=== PATIENT | male | born 1960 | race Two or more races ===

== ENCOUNTER → 2019-05-11 | Outpatient (CLI) | payer MEDICARE | LOC: MSC 09:20 | PROVIDERS: ATTEND Anesthesiology | DX: M54.16 Radiculopathy, lumbar region (principal); M96.1 Postlaminectomy syndrome, not elsewhere classified; M62.830 Muscle spasm of back; G89.4 Chronic pain syndrome; M25.562 Pain in left knee; M25.561 Pain in right knee; F11.20 Opioid dependence, uncomplicated ==

== ENCOUNTER 2020-06-29 21:40 | Emergency (ER) | payer MEDICARE, OTHER ==
[~2020-06-29] VITALS: Ht 182.9 cm; Wt 104.3 kg
--- NOTE | 2020-06-29 23:25 | NUR ---
PT BIBS STATES "IM HEARING VOICES TELLING ME TO KILL MYSELF" STATES PLAN IS TO CUT HIMSELF, PT STATES HE HAS NOT SHARP OBJECTS ON HIS PERSON, BELONGINGS CHECKED, NO SHARP OBJECTS FOUND. SECURITY AD BEDSIDE WITH PONCE TO CHECK FOR METAL ON PT. 1:1 SITTER FOR MONITORING
[2020-06-29 23:55] LABS: BASOPHILS % (AUTO) 0.6 % (0.0-2.0); EOSINOPHILS % (AUTO) 4.9 % (0.0-6.0); HEMATOCRIT 36 % (39-51); HEMOGLOBIN 12.2 g/dL (13.5-17.5); LYMPHOCYTES # (AUTO) 2.2 /CMM (0.8-4.8); LYMPHOCYTES % (AUTO) 34.7 % (20.0-44.0); MEAN CORPUSCULAR HGB CONC 34 g/dl (31.0-36.0); MEAN CORPUSCULAR VOLUME 95 fL (80-96); MONOCYTES # (AUTO) 0.8 /CMM (0.1-1.30); MONOCYTES % (AUTO) 12.5 % (2.0-12.0); NEUTROPHILS % (AUTO) 47.3 % (43.0-81.0); PLATELET COUNT (AUTO) 303 /CMM (150-450); WHITE BLOOD COUNT (AUTO) 6.4 K/uL (4.3-11.0)
--- NOTE | 2020-06-30 00:03 | NUR ---
urine sent to lab
[2020-06-30 00:30] LABS: CARBON DIOXIDE 26 mmol/L (21-32); CHLORIDE 106 mmol/L (98-107); CREATININE 1.3 mg/dL (0.6-1.3); GLUCOSE 151 mg/dL (74-106); POTASSIUM 3.5 mmol/L (3.5-5.1); SODIUM SERUM 142 mmol/L (136-145); UREA NITROGEN, BLOOD 21 mg/dL (7-18)
[2020-06-30 00:37] LABS: BILIRUBIN,URINE SMALL (NEGATIVE); BLOOD, URINE Negative Ery/uL (NEGATIVE); COLOR,URINE ORANGE (YELLOW); LEUKOCYTE ESTERASE ,URINE Negative (NEGATIVE); NITRITE, URINE Negative (NEGATIVE); PROTEIN,URINE Negative (NEGATIVE); UGLUCOSE Negative (NEGATIVE)
[2020-06-30 00:38] LABS: ACETAMINOPHEN < 10 ug/ml (10-30); ALANINE AMINOTRANSFERASE 36 U/L (12-78); ALBUMIN 3.4 g/dL (3.4-5.0); ALCOHOL, BLOOD < 3 mg/dL (0-0); ALKALINE PHOSPHATASE 100 U/L (46-116); ASPARTATE AMINOTRANSFERASE 31 U/L (15-37); BILIRUBIN,TOTAL 0.1 mg/dL (0.2-1.0); TOTAL PROTEIN, SERUM 7.2 g/dL (6.4-8.2)
[2020-06-30] MEDS ORDERED: DIVALPROEX SODIUM 500 MG TABLET.DR PO ONE ×2 (01:11→01:30)
[2020-06-30] MEDS ORDERED: buPROPion SR 100 MG TABLET.ER PO SCH (01:30)
[2020-06-30] MEDS ORDERED: ARIPIPRAZOLE 5 MG TABLET PO ONE (01:30)
--- NOTE | 2020-06-30 01:44 | NUR ---
CLINICAL FAXED TO [facility] FOR VOLUNTARY PSYCH ADMISSION.
[2020-06-30 01:49] LABS: BACTERIA,URINE None seen /HPF (None Seen); RBC,URINE 0-2 /HPF (0-2); WBC,URINE 0-2 /HPF (0-3)
[2020-06-30 01:50] LABS: SQUAMOUS EPITHELIAL CELL,UR Few /HPF (None Seen)
--- NOTE | 2020-06-30 01:56 | NUR ---
Call from lab, rapid covid negative.
--- NOTE | 2020-06-30 02:04 | NUR ---
Call from [facility]. Per [facility] unable to accept patient.
--- NOTE | 2020-06-30 03:06 | NUR ---
at time of discharge pt states he no longer has suicidal idiations or a plan, he understand there is no bed and would rather leave
[2020-06-30 03:07] VITALS: BP 133/76
--- NOTE | 2020-06-30 03:07 | NUR ---
Patient discharged to home in stable condition. Written and verbal after care instructions given. Patient verbalizes understanding of instruction.
== END 2020-06-30 03:07 | disposition home or self-care (01) ==
LOC: ER 21:40
DX: R45.851 Suicidal ideations (principal); F19.10 Other psychoactive substance abuse, uncomplicated; F14.10 Cocaine abuse, uncomplicated; F12.10 Cannabis abuse, uncomplicated; F20.9 Schizophrenia, unspecified; F31.9 Bipolar disorder, unspecified; E11.9 Type 2 diabetes mellitus without complications; I10 Essential (primary) hypertension; Z88.6 Allergy status to analgesic agent; Z20.828 Contact with and (suspected) exposure to other viral communicable diseases
CPT/HCPCS: 36415; 80048-TC; 80076-TC; 81001; 85025-TC; C9803; G0480

== ENCOUNTER 2022-05-06 20:11 | Inpatient (IN) | payer MEDICARE, OTHER ==
[~2022-05-06] VITALS: Ht 182.9 cm; Wt 104.3 kg
[2022-05-06 22:00] VITALS: BP 151/94
--- NOTE | 2022-05-06 22:00 | NUR ---
PINKED EDGE SEWING MACHINE OPERATOR NOTE: ADMITTED A 62-Y/O, MALE, FROM [facility]. ADMITTED ON A 5250 HOLD. PER HOLD, PT STATED, "I HAVE VOICES THAT ARE TELLING ME TO KILL MYSELF WITH NO CLEAR PLAN. UPON FACE TO FACE EVALUATION, PATIENT IS ALERT AND ORIENTED X3, ANXIOUS, NEEDY, GUARDED, FOCUS ON FOOD. PATIENT DENIES SI/HI AT THIS TIME. PATIENT STATES, HE STILL HEARING VOICES TELLING HIM ABOUT "KYRIE SANJAY AND DEVIL". PT. DENIED VISUAL HALLUCINATIONS. SKIN INTACT. ALL BELONGINGS WERE CHECKED FOR CONTRABAND AND WAS KEPT IN PT. ROOM LOCKER. HIS VALUABLES WERE TAKEN TO [facility]. PT IS A SMOKER AND NICOTINE PATCH WAS OFFERED BUT PATIENT REFUSED. PATIENT'S RIGHTS WERE DISCUSSED AND BOOKLET WAS GIVEN. CONTACTED DR. RICE AND HOSPITALIST SACHA LAWSON AND INFORMED THEM OF THE ADMISSION. BED IN LOW AND LOCKED POSITION. SAFETY PRECAUTIONS MAINTAINED. WILL CONTINUE TO MONITOR Q15 MINS FOR MOOD, SAFETY AND BEHAVIOR. Addendum: 05/07/22 at 0637 by ISSA CONTRERAS RN [id number] - ADMINISTERED FLU VACCINE ORDERED PER PT. REQUEST TO LEFT ARM. PT DENIES PAIN OR DISCOMFORT. NO SWELLING, NO REDNESS NOTED AT SITE.
[2022-05-06] MEDS ORDERED: ZOLPIDEM TARTRATE 5 MG TABLET PO PRN (22:30)
[2022-05-06] MEDS ORDERED: DEXTROSE 50%-WATER 50 ML DISP.SYRIN IV PRN (22:30)
[2022-05-06] MEDS ORDERED: MAG HYDROX/AL HYDROX/SIMETH 30 ML UDC PO PRN (22:30)
[2022-05-06] MEDS ORDERED: *INSULIN REGULAR(HUMULIN R)HUM 100 UNIT/ML VIAL SQ PRN (22:30)
[2022-05-06] MEDS ORDERED: BLOOD SUGAR DIAGNOSTIC 1 EACH STRIP IN ONE (22:30)
[2022-05-06] MEDS ORDERED: MAGNESIUM HYDROXIDE 30 ML UDC PO PRN (22:30)
[2022-05-07] MEDS ORDERED: DIVA500T2 PO (00:55)
[2022-05-07] MEDS ORDERED: TRIH5TAB3 PO (00:55)
[2022-05-07] MEDS ORDERED: IBUP-1953 PO (00:55)
[2022-05-07] MEDS ORDERED: METF-440 PO (00:55)
[2022-05-07] MEDS ORDERED: DICLOFENAC (00:55)
[2022-05-07] MEDS ORDERED: ARIP10TA9 PO (00:55)
[2022-05-07] MEDS ORDERED: CAPS42.513 TP (00:55)
[2022-05-07] MEDS ORDERED: NIFE-35 PO (00:55)
[2022-05-07] MEDS ORDERED: IBUPROFEN 400 MG TABLET PO PRN (02:30)
[2022-05-07] MEDS ORDERED: INFLUENZA VACCINE 2022-23 0.5 ML DISP.SYRIN IM ONE (06:00)
[2022-05-07] MEDS: BLOOD SUGAR DIAGNOSTIC 1 EACH STRIP VI SCH ×4 (07:11→22:03)
[2022-05-07 08:00] VITALS: BP 159/93
[2022-05-07] MEDS: METFORMIN 500 MG TABLET PO SCH ×2 (08:18→17:02)
[2022-05-07 08:59] LABS: CHOLESTEROL 169 mg/dL (<200); HDL CHOLESTEROL 53 mg/dL (40-60); LDL 101 mg/dL (0-99); TRIGLYCERIDES 91 mg/dL (30-150)
[2022-05-07 09:19] LABS: ALBUMIN 3.4 g/dL (3.4-5.0); CALCIUM, SERUM 9.4 mg/dL (8.5-10.1); POTASSIUM 4.3 mmol/L (3.5-5.1)
[2022-05-07] MEDS: NIFEdipine XL (30MG) 30 MG TAB PO SCH (09:29)
[2022-05-07] MEDS: CAPSAICIN 0.075% CREAM 60 GM TUBE TP SCH ×3 (09:30→17:00)
[2022-05-07] MEDS ORDERED: buPROPion 100 MG TABLET PO STA (09:30)
[2022-05-07 09:43] LABS: BILIRUBIN,TOTAL 0.2 mg/dL (0.2-1.0); TOTAL PROTEIN, SERUM 7.7 g/dL (6.4-8.2)
--- NOTE | 2022-05-07 11:07 | NUR ---
GERALDO Initial Discharge Plan: Pt is homeless and would want this report writer to find him a nursing facility. Pt stated that he has no supportive contact at this time and has no family that is involved in his care. GERALDO will work with the pt, family, and MD to help coordinate appropriate discharge plan.
--- NOTE | 2022-05-07 11:07 | NUR ---
EGRALDO Clinical Note: Pt placed on a 5150 hold for danger to others and self and is currently on a 14 day hold. Pt has been hearing voices that are telling him to kill himself. Pt is homeless and has been homeless for about 8 years. Pt stated that he has no supportive contact at this time and has no family that is involved in his care.
--- NOTE | 2022-05-07 11:08 | NUR ---
Family Contact: Pt has no supportive contact at this time.
--- NOTE | 2022-05-07 11:10 | NUR ---
Social Work Note/Substance Abuse Intervention: Patient was provided with a brief substance abuse intervention and referred to [facility] ([phone]), [facility] ([phone]), and [facility] ([phone]) for smoking cigarettes.
[2022-05-07 16:00] VITALS: BP 154/85
[2022-05-07] MEDS ORDERED: hydrALAZINE HCL 25 MG TABLET PO PRN (16:30)
[2022-05-07] MEDS: INSULIN REGULAR, HUMAN 100 UNIT/ML 3 ML VIAL SQ PRN (16:57)
[2022-05-07] MEDS: TRIHEXYPHENIDYL HCL 5 MG TABLET PO SCH (16:58)
[2022-05-07] MEDS: buPROPion SR 100 MG TABLET.ER PO SCH (16:58)
[2022-05-07 20:15] VITALS: BP 149/82
[2022-05-07 21:02] VITALS: BP 149/82
[2022-05-07] MEDS: ARIPIPRAZOLE 5 MG TABLET PO SCH (21:48)
[2022-05-08] MEDS: LORAZEPAM 0.5 MG TABLET PO PRN (03:53)
--- NOTE | 2022-05-08 03:54 | NUR ---
RN NOTE: ANXIETY PATIENT VERBALIZED FEELING ANXIOUS AND RESTLESS AND REQUESTED TO TAKE ATIVAN AT THIS TIME. PER PATIENT REQUEST, PRN ATIVAN 1 MG PO ADMINISTERED.
[2022-05-08] MEDS: ACETAMINOPHEN 325 MG TABLET PO PRN ×2 (03:56→09:26)
--- NOTE | 2022-05-08 04:00 | NUR ---
RN NOTE: HEADACHE PATIENT C/O HEADACHE AND WANTED TO TAKE TYLENOL. PER PATIENT REQUEST, PRN TYLENOL 650 MG PO ADMINISTERED. WILL CONTINUE TO MONITOR.
[2022-05-08] MEDS: METFORMIN 500 MG TABLET PO SCH ×2 (07:31→17:40)
[2022-05-08] MEDS: BLOOD SUGAR DIAGNOSTIC 1 EACH STRIP VI SCH ×4 (07:31→21:17)
[2022-05-08 08:00] VITALS: BP 159/96
[2022-05-08] MEDS: NIFEdipine XL (30MG) 30 MG TAB PO SCH (08:38)
[2022-05-08] MEDS: DIVALPROEX SODIUM 500 MG TABLET.DR PO SCH ×2 (08:38→13:06)
[2022-05-08] MEDS: TRIHEXYPHENIDYL HCL 5 MG TABLET PO SCH ×2 (08:51→17:39)
[2022-05-08] MEDS: buPROPion SR 100 MG TABLET.ER PO SCH ×2 (08:51→15:12)
[2022-05-08] MEDS: CAPSAICIN 0.075% CREAM 60 GM TUBE TP SCH ×3 (08:51→17:40)
--- NOTE | 2022-05-08 09:30 | NUR ---
NURSE NOTE: PT C/O KNEE PAIN AT LEVEL 9/10. TYLENOL PO ADMINISTERED ORDERED. PT DEMETRIUS WELL. WILL CONT TO MONITOR.
--- NOTE | 2022-05-08 11:00 | NUR ---
NURSE NOTE: TYLENOL NOT EFFECTIVE. DR HUTCHINS INFORMED. AWAITING ORDER AT THIS TIME.
--- NOTE | 2022-05-08 11:26 | NUR ---
RN-CO: DR HUTCHINS , TO, OF NORCO 5 MG Q 8 HRS PRN FOR MODERATE PAIN 4-01/27. NOTED AND CARRIED OUT.
[2022-05-08] MEDS: HYDROCODONE/APAP 5/325MG TABLET PO PRN ×2 (11:39→20:01)
--- NOTE | 2022-05-08 11:40 | NUR ---
NURSE NOTE: PT C/O PAIN TO BACK AT LEVEL 9/10. NORCO PO ADMINISTERED ORDERED. PT DEMETRIUS WELL. WILL CONT TO MONITOR.
--- NOTE | 2022-05-08 12:30 | NUR ---
NURSE NOTE: PT STATES PAIN DECREASED. NORCO EFFECTIVE AT THIS TIME. WILL CONT TO MONITOR.
--- NOTE | 2022-05-08 20:03 | NUR ---
RN NOTE: PAIN PATIENT C/O RIGHT/LEFT KNEE PAIN 8/ AND INSISTED TO TAKE NORCO. PER PATIENT REQUEST, PRN NORCO 5-325 MG PO ADMINISTERED.
[2022-05-08] MEDS: ARIPIPRAZOLE 5 MG TABLET PO SCH (21:15)
[2022-05-09] MEDS: HYDROCODONE/APAP 5/325MG TABLET PO PRN ×3 (04:18→22:03)
[2022-05-09] MEDS: BLOOD SUGAR DIAGNOSTIC 1 EACH STRIP VI SCH ×4 (07:41→21:53)
[2022-05-09 08:00] VITALS: BP 105/60
[2022-05-09] MEDS: DIVALPROEX SODIUM 500 MG TABLET.DR PO SCH ×2 (08:08→12:20)
[2022-05-09] MEDS: CAPSAICIN 0.075% CREAM 60 GM TUBE TP SCH ×3 (08:08→16:40)
[2022-05-09] MEDS: TRIHEXYPHENIDYL HCL 5 MG TABLET PO SCH ×2 (08:08→16:40)
[2022-05-09] MEDS: buPROPion SR 100 MG TABLET.ER PO SCH ×2 (08:09→14:04)
[2022-05-09] MEDS: METFORMIN 500 MG TABLET PO SCH ×2 (08:11→17:20)
[2022-05-09] MEDS: NIFEdipine XL (30MG) 30 MG TAB PO SCH (08:12)
--- NOTE | 2022-05-09 08:55 | NUR ---
GERALDO SNF Referral: GERALDO sent clinicals to Andie Zacarias ([phone]) for placement. GERALDO sent to [facility]. SW sent H & P, progress notes, and medication list.
[2022-05-09] MEDS: INSULIN REGULAR, HUMAN 100 UNIT/ML 3 ML VIAL SQ PRN ×2 (11:23→17:20)
--- NOTE | 2022-05-09 12:24 | NUR ---
Pt c/o of lower back pain /7/10 scale and requested for pain medication. PRN [place] 5/325 mg po administered at 1220. will continue to monitor and reassess pt.
--- NOTE | 2022-05-09 13:27 | NUR ---
Dr. Cano spoke to the pt. and ordered to change diet to Regular Diet
[2022-05-09 16:00] VITALS: BP 145/79
[2022-05-09 20:00] VITALS: BP 168/69
--- NOTE | 2022-05-09 20:15 | NUR ---
RN NOTES: PATIENT RESTING IN ROOM. ANXIOUS, EASILY AGITATED, PARANOID, VERY NEEDY, DEMANDING, FOCUS ON FOOD AND MEDICATIONS,GUARDED ENTITLED. SETTING LIMITS PROVIDED.ENCOURAGED TO VERBALIZED ANY FEELING OR CONCERN, DENIES SI/HI AT THIS TIME. SAFETY PRECAUTIONS IN PLACE. WILL CONTINUE TO MONITOR Q15MIN ROUNDS FOR SAFETY AND BEHAVIOR.
[2022-05-09] MEDS: ARIPIPRAZOLE 5 MG TABLET PO SCH (21:06)
[2022-05-09 22:00] VITALS: BP_SYST 135; BP_SYST 149; BP_DIAS 70; BP_DIAS 82
--- NOTE | 2022-05-09 22:05 | NUR ---
RN NOTES: PAIN PT. C/O BACK PAIN 01/27 NORCO 5/325 MG 1 TAB GIVEN, WILL CONTINUE TO MONITOR.
[2022-05-10] MEDS: HYDROCODONE/APAP 5/325MG TABLET PO PRN (06:43)
--- NOTE | 2022-05-10 06:44 | NUR ---
RN NOTES: PAIN PT. C/O BACK,LEFT KNEE PAIN 01/27 NORCO 5/325 MG 1 TAB GIVEN, WILL CONTINUE TO MONITOR.
[2022-05-10] MEDS: BLOOD SUGAR DIAGNOSTIC 1 EACH STRIP VI SCH ×3 (07:30→17:05)
[2022-05-10 08:00] VITALS: BP 151/87
[2022-05-10] MEDS: CAPSAICIN 0.075% CREAM 60 GM TUBE TP SCH ×3 (08:12→17:04)
[2022-05-10] MEDS: METFORMIN 500 MG TABLET PO SCH ×2 (08:27→17:05)
[2022-05-10] MEDS: TRIHEXYPHENIDYL HCL 5 MG TABLET PO SCH ×2 (08:27→17:04)
[2022-05-10] MEDS: NIFEdipine XL (30MG) 30 MG TAB PO SCH (08:28)
[2022-05-10] MEDS: DIVALPROEX SODIUM 500 MG TABLET.DR PO SCH ×2 (08:28→12:23)
[2022-05-10] MEDS: buPROPion SR 100 MG TABLET.ER PO SCH ×2 (08:28→14:41)
[2022-05-10] MEDS: LORAZEPAM 0.5 MG TABLET PO PRN (11:22)
--- NOTE | 2022-05-10 11:26 | NUR ---
Court Notification: Patient does not have any supportive contact.
--- NOTE | 2022-05-10 11:27 | NUR ---
Court Hearing: Patient's court hearing for 1880 and it was upheld for danger to self.
--- NOTE | 2022-05-10 11:36 | NUR ---
GERALDO SNF Contact: GERALDO spoke with Andie Zacarias ([phone]) from [facility] who stated that pt is accepted.
--- NOTE | 2022-05-10 11:45 | NUR ---
GPS/RN ATIVAN 1MG PO GIVEN FOR ANXIETY AND AGGRESSION. PT GRABBED THE ARM OF CONFUSED PT (ROOM 211B) CAUSING SKIN TEAR. DR RICE MADE AWARE.
--- NOTE | 2022-05-10 11:49 | NUR ---
SW Discharge Note: Patient will be discharged to fdc facility, [facility], located at [facility] [place] [address] ([phone]) . Please arrange ambulance transportation at 6PM. spoilage worker spoke with Andie griffin ([phone]), who stated patient will be accepted at the facility today. Patient does not have any supportive contact. Patient is alert and oriented x2 and is unable to plan for self-care. Patient denies any suicidal or homicidal ideation. Patient is aware and agreeable with discharge plans. Patient will continue to follow-up with (psychiatrist) Dr. Cano [facility] [place] [address] ([phone]) and (Event Planner) Dr. Morgan [address] [place] [address] [address], [place] [address]; ([phone]). Patient refused to sign the homeless waiver upon discharge and a copy was placed in the chart. Homeless resources were provided and include [address] information line for shelters and homeless resources. A copy of all resources given to patient was also placed in the chart. Patient presents with euthymic mood and congruent affect.
--- NOTE | 2022-05-10 12:47 | NUR ---
GPS/RN PT REFUSED ACCUCHECK AND REFUSED TO LET SCRIPT WRITER TO DRAW BLOOD.
--- NOTE | 2022-05-10 13:41 | NUR ---
Dr. Cano gave an order to D/C hold and D/C to [facility] and to follow up with psych and medical doctors. Psychiatrist reconciled on meds to continue in the facility.
[2022-05-10 16:00] VITALS: BP 157/79
--- NOTE | 2022-05-10 16:48 | NUR ---
GPS/RN REPORT GIVEN TO YASMIN REN AT [facility]
--- NOTE | 2022-05-10 18:16 | NUR ---
GPS/RN PT REFUSED TO SIGN D/C PAPERWORK AND EXIT CARE. REFUSED ACCUCHECK AT 3540
--- NOTE | 2022-05-10 18:47 | NUR ---
GPS/RN CALLED AMBULANCE THERE IS DELAY FOR JOB SERVICE CONSULTANT.
--- NOTE | 2022-05-10 19:30 | NUR ---
SW Discharge Note: Patient discharged to fdc facility, [facility], located at [address] [place] [address] ([phone]) . Patient does not have any supportive contact. Patient is alert and oriented x2 and is unable to plan for self-care. Patient denies any suicidal or homicidal ideation. Patient is aware and agreeable with discharge plans. Patient will continue to follow-up with (psychiatrist) Dr. Cano [address] [place] [address] ([phone]) and (Pharmacy Messenger) Dr. Morgan [address] [facility] [address], [place] [address]; ([phone]). Patient refused to sign the homeless waiver upon discharge and a copy was placed in the chart. Homeless resources were provided and include [address] information line for shelters and homeless resources. A copy of all resources given to patient was also placed in the chart. Patient refused skin assessment. Patient signed for all his belongings and all belongings returned to patient. Patient does not qualify for MRSA swab due to admission being less than 21 days. Patient medications were reconciled with psych and medical MD's. Patient is in stable condition, Vital signs are stable, and no acute distress noted.
== END 2022-05-10 19:30 | DRG 885 ==
LOC: GPS 21:46
PROVIDERS: ADMIT Psychiatry & Neurology Psychiatry; ATTEND Internal Medicine
DX: F25.9 Schizoaffective disorder, unspecified (principal); F23 Brief psychotic disorder; R45.851 Suicidal ideations; F31.9 Bipolar disorder, unspecified; E11.9 Type 2 diabetes mellitus without complications; Z59.00 Homelessness unspecified; F60.2 Antisocial personality disorder; F39 Unspecified mood [affective] disorder; F19.10 Other psychoactive substance abuse, uncomplicated; F17.210 Nicotine dependence, cigarettes, uncomplicated; I10 Essential (primary) hypertension; Z79.899 Other long term (current) drug therapy; Z91.51 Personal history of suicidal behavior; Z81.8 Family history of other mental and behavioral disorders
CPT/HCPCS: 36415; 80053-TC; 80061-TC; 82962-TC; 87081-TC; J1815; Q2036